=== PATIENT | female | born 1990 | race African-American/Black ===

== ENCOUNTER 2016-12-18 05:56 | Day surgery (SDC) | payer BC, OTHER ==
[2016-12-17 10:46] LABS: HEMATOCRIT 34.5 % (36.0-47.0); HEMOGLOBIN 11.5 g/dL (12.0-15.5); MEAN CORPUSCULAR HEMOGLOBIN 28.1 pg (27.0-33.4); MEAN CORPUSCULAR HGB CONC 33.4 g/dL (32.0-36.0); MEAN CORPUSCULAR VOLUME 84 fl (80-97); RED CELL DISTRIBUTION WIDTH 12.7 % (11.5-14.0); WHITE BLOOD COUNT 7.9 10^3/uL (4.0-10.5)
[~2016-12-18 05:56] MED LIST: CEFAZOLIN 1 GM/D5W RTU 1 GM/50 ML RTUPB IV PRN; LACTATED RINGERS 1000 ML IV PRN; LIDOCAINE 0.5% INJ-PF (5 MG/ML) 50 ML SDV SUBCUT PRN
[2016-12-18] MEDS ORDERED: BUPIVACAINE HCL 0.25 % INJ/PF (2.5 MG/1 ML) 30 ML VIAL ONE (06:35)
[2016-12-18] MEDS ORDERED: BACITRACIN INJ 50,000 UNIT VIAL ONE (06:35)
[2016-12-18] MEDS ORDERED: LIDOCAINE 0.5% INJ-PF (5 MG/ML) 50 ML SDV ONE (06:35)
[2016-12-18] MEDS ORDERED: FENTANYL CITRATE INJ/PF 250 MCG/5 ML AMPULE ONE (06:57)
[2016-12-18] MEDS ORDERED: FENTANYL CITRATE INJ/PF 100 MCG/2 ML AMPUL ONE ×2 (06:57→09:17)
[2016-12-18] MEDS ORDERED: ACETAMINOPHEN 100 ML IV ONE (06:58)
[2016-12-18] MEDS ORDERED: PROPOFOL INJ 200 MG/20 ML VIAL IV ONE ×2 (06:58→07:47)
[2016-12-18] MEDS ORDERED: MIDAZOLAM 2 MG/2 ML INJ ONE (06:58)
[2016-12-18] MEDS ORDERED: PROMETHAZINE HCL INJ 25 MG/1 ML VIAL IV PRN (08:40)
[2016-12-18] MEDS ORDERED: FENTANYL CITRATE INJ/PF 100 MCG/2 ML AMPUL IV PRN ×3 (08:40)
[2016-12-18] MEDS ORDERED: DIPHENHYDRAMINE HCL 50 MG/ML VIAL IV PRN (08:40)
[2016-12-18] MEDS ORDERED: MORPHINE SULFATE 10 MG/ML INJ IV PRN (08:40)
--- NOTE | 2016-12-18 08:55 | PDOC DISCHARGE SUMMARY ---
Discharge Summary (SDC) - Discharge Final Diagnosis: Left axillary abscess, recurrent Date of Surgery: 12/18/16 Discharge Date: 12/18/16 Condition: Good Treatment or Instructions: Discharge home [after recovery per ASU criteria]. Diet , ,as tolerated, when fully awake advance as tolerated. Activities within moderation encouraged. Follow up in my office by appointment in about [1 week]. Call for appointment. Leave wounds [covered], after 48 hours remove and shower, irrigated with 1 teaspoon of peroxide shower and cover with dry gauze repeat daily thereafter. Meds per med rec. Percocet continue antibiotic. Hold of on school/work [until evaluation in office]. May shower [in 48 hrs], [try to keep operated area as dry as possible, until then]. Prescriptions: Cephalexin Monohydrate [Keflex 500 mg Capsule] 500 mg PO TID #15 capsule Oxycodone HCl/Acetaminophen [Percocet 5-325 mg Tablet] 1 tab PO ASDIR PRN #15 tab PRN Reason: Referrals: PATI SETHI DO [Primary Care Provider] - Discharge Diet: As Tolerated Respiratory Treatments at Home: Deep Breathing/Coughing Discharge Activity: Activity As Tolerated Report the Following to Your Physician Immediately: Unusual Bleeding
--- NOTE | 2016-12-18 08:59 | Operative Report ---
Operative Report DATE OF SURGERY: 12/18/16 PREOPERATIVE DIAGNOSIS: Left axillary abscess, recurrent POSTOPERATIVE DIAGNOSIS: Left axillary abscess, recurrent OPERATION: Debridement of left axillary abscess, sharp, surgically, excisional excised subcutaneous tissue. SURGEON: KYLE MA ECHOMETER ENGINEER: JOEL LORENZO ANESTHESIA: LMAC TISSUE REMOVED OR ALTERED: Abscess, left axilla. COMPLICATIONS: None ESTIMATED BLOOD LOSS: 5 mL. INTRAOPERATIVE FINDINGS: Of a forearm skin and subcutaneous area about 5 x 3 cm in the mid to inferior left axilla. Containing inflammatory subcutaneous tissues. Also small amount of pus. Pus sent for culture. Tissue sent for pathology. PROCEDURE: PROCEDURE: The left axilla was prepared with [Betadine] and draped out with sterile linen. After the"universal time-out", in which it was confirmed that the patient [did receive antibiotic], the procedure commenced. The patient was appropriately anesthetized. The wound was probed. The edges marked, local anesthesia infiltrated. The scar of previous abscesses excised down to the abscess cavity circumferentially. Using cautery. The wound was debrided of non viable tissue using cautery and curettes] with removal of loose debris, as well. The wound was irrigated with [Peroxide] . Hemostasis secured with cautery.The wound was now irrigated with saline and [Surgicel] placed within it, dressed with [Kerlix ] and the procedure concluded.
[2016-12-18] MEDS ORDERED: OXYCODONE-ACETAMINOPHEN 5-325 MG TABLET ONE (09:56)
[2016-12-18] MEDS ORDERED: OXYCODONE-ACETAMINOPHEN 5-325 MG TABLET PO PRN (10:30)
[2016-12-18 11:00] VITALS: BP 142/74
[2016-12-18] MEDS ORDERED: ONDANSETRON HCL INJ/PF 4 MG/2 ML SDV ONE (12:27)
[2016-12-18] MEDS ORDERED: GLYCOPYRROLATE INJ 0.4 MG/2 ML VIAL ONE (12:27)
[2016-12-18] MEDS ORDERED: DEXAMETHASONE SOD PHOSPHATE INJ 4 MG/1 ML VIAL ONE (12:27)
[2016-12-18] MEDS ORDERED: LIDOCAINE 2% INJ-PF (20 MG/ML) 10 ML AMPUL ONE (12:27)
== END 2016-12-18 10:45 | disposition home or self-care (01) ==
LOC: OROUT 05:56
PROVIDERS: ATTEND Surgery
PROC: 0JBF0ZZ Excision of Left Upper Arm Subcutaneous Tissue and Fascia, Open Approach (ICD-10-PCS; principal; 2016-12-18 08:00)
DX: L02.412 Cutaneous abscess of left axilla (principal)
CPT/HCPCS: 36415; 87070; 87205; 85027; 81025; 87075; 87077; 87186; 11042; J2250; J3490 ×3; J0690; J1100; J3010; J2405; J2704; J0131; 400

== ENCOUNTER 2016-12-21 16:23 | Emergency (ER) | payer BC ==
[2016-12-21 16:29] VITALS: BP 135/88
--- NOTE | 2016-12-21 16:53 | ER Document Report ---
ED Wound - General Chief Complaint: Wound Recheck Stated Complaint: SURGICAL SITE PAIN Time Seen by Provider: 12/21/16 16:44 Notes: Patient is a 26-year-old female presents emergency department for a wound check. Patient had an incision and drainage of the left axilla on Saturday by Dr. Rajput. States she took the packing out yesterday and it addressing that she was unable to remove today. She states that she is concerned because of stuck. Otherwise she denies any tenderness, fever, chills, worsening pain. TRAVEL OUTSIDE OF THE [place] IN LAST 30 DAYS: No - Related Data Allergies/Adverse Reactions: No Known Allergies Allergy (Verified 12/21/16 16:29) Past Medical History - Social History Smoking Status: Never Smoker Family History: Reviewed & Not Pertinent - Past Medical History Cardiac Medical History: Denies: Hx Coronary Artery Disease, Hx Heart Attack, Hx Hypertension Pulmonary Medical History: Denies: Hx Asthma, Hx Bronchitis, Hx COPD, Hx Pneumonia Neurological Medical History: Denies: Hx Cerebrovascular Accident, Hx Seizures Renal/ Medical History: Denies: Hx Peritoneal Dialysis GI Medical History: Denies: Hx Hepatitis, Hx Hiatal Hernia, Hx Ulcer Musculoskeltal Medical History: Denies Hx Arthritis Infectious Medical History: Denies: Hx Hepatitis Past Surgical History: Denies: Hx Hysterectomy, Hx Mastectomy, Hx Open Heart Surgery, Hx Pacemaker - Immunizations Hx Diphtheria, Pertussis, Tetanus Vaccination: Yes Review of Systems - Review of Systems Constitutional: No symptoms reported Skin: See HPI -: Yes All other systems reviewed and negative Physical Exam - Vital signs Vitals: Temp Pulse Resp BP Pulse Ox 98.4 F 83 18 135/88 H 100 12/21/16 16:25 12/21/16 16:25 12/21/16 16:25 12/21/16 16:25 12/21/16 16:25 - General General appearance: Appears well, Alert In distress: None - Extremities General upper extremity: Normal inspection, Nontender, Normal color, Normal ROM , Normal strength, Normal temperature. No: Edema - Skin Skin Temperature: Warm Skin Moisture: Dry Skin Color: Normal Skin Turgor: Elastic Skin irregularity: other - Site under the left axilla measuring approximately 3 cm in diameter post incision and drainage without surrounding induration, erythema or cellulitis. Nontender to exam. Gauze removed at the bedside without any evidence of underlying retained purulent material. Course - Re-evaluation Re-evalutation: 12/21/16 17:06 Patient is a 26-year-old female is hemodynamically stable, no acute distress and afebrile. Wound of the left axilla is healing well without any evidence of retained purulent material, induration or surrounding cellulitis. Patient's vital signs are stable. Discussed wound care at home and otherwise can follow- up with Dr. Rajput. Patient agrees with plan - Vital Signs Vital signs: Temp Pulse Resp BP Pulse Ox 98.4 F 83 18 135/88 H 100 12/21/16 16:25 12/21/16 16:25 12/21/16 16:25 12/21/16 16:25 12/21/16 16:25 Discharge - Discharge Clinical Impression: Wound check, abscess Condition: Good Disposition: HOME, SELF-CARE Instructions: Post Incision and Drainage Referrals: KYLE RAJPUT MD [ACTIVE STAFF] - Follow up in 1 week
== END 2016-12-21 17:05 | disposition home or self-care (01) ==
LOC: ER 16:23
DX: Z48.01 Encounter for change or removal of surgical wound dressing (principal); L02.412 Cutaneous abscess of left axilla
CPT/HCPCS: 99282

== ENCOUNTER 2017-06-11 07:55 | Day surgery (SDC) | payer BC ==
[~2017-06-11 07:55] MED LIST changes: +BACITRACIN INJ 50,000 UNIT VIAL ONE; +BUPIVACAINE HCL 0.25 % INJ/PF (2.5 MG/1 ML) 30 ML VIAL ONE; +DEXTROSE 5%-1/2 NORMAL SALINE 1,000 ML IV PRN; +LIDOCAINE 0.5% INJ-PF (5 MG/ML) 50 ML SDV ONE
[2017-06-11 08:43] LABS: HEMATOCRIT 40.1 % (36.0-47.0); HEMOGLOBIN 13.1 g/dL (12.0-15.5); MEAN CORPUSCULAR HEMOGLOBIN 27.4 pg (27.0-33.4); MEAN CORPUSCULAR HGB CONC 32.7 g/dL (32.0-36.0); MEAN CORPUSCULAR VOLUME 84 fl (80-97); PLATELET COUNT 260 10^3/uL (150-450); RED BLOOD COUNT 4.78 10^6/uL (3.72-5.28); RED CELL DISTRIBUTION WIDTH 13.5 % (11.5-14.0); WHITE BLOOD COUNT 6.1 10^3/uL (4.0-10.5)
[2017-06-11 08:58] LABS: ANION GAP 8 (5-19); BLOOD UREA NITROGEN 14 mg/dL (7-20); CALCIUM 9.3 mg/dL (8.4-10.2); CARBON DIOXIDE 23 mmol/L (22-30); CHLORIDE 110 mmol/L (98-107); GLUCOSE 92 mg/dL (75-110); POTASSIUM 4.7 mmol/L (3.6-5.0); SODIUM 141.2 mmol/L (137-145)
[2017-06-11] MEDS ORDERED: ONDANSETRON HCL INJ/PF 4 MG/2 ML SDV ONE (10:24)
[2017-06-11] MEDS ORDERED: MIDAZOLAM 2 MG/2 ML INJ ONE (10:24)
[2017-06-11] MEDS ORDERED: FENTANYL CITRATE INJ/PF 100 MCG/2 ML AMPUL ONE (10:24)
[2017-06-11] MEDS ORDERED: DEXAMETHASONE SOD PHOSPHATE INJ 4 MG/1 ML VIAL ONE (10:24)
[2017-06-11] MEDS ORDERED: PROPOFOL INJ 200 MG/20 ML VIAL IV ONE (10:25)
[2017-06-11] MEDS ORDERED: PROMETHAZINE HCL INJ 25 MG/1 ML VIAL IV PRN ×2 (11:18)
[2017-06-11] MEDS ORDERED: OXYCODONE-ACETAMINOPHEN 5-325 MG TABLET PO PRN ×2 (11:18)
[2017-06-11] MEDS ORDERED: FENTANYL CITRATE INJ/PF 100 MCG/2 ML AMPUL IV PRN ×3 (11:18)
[2017-06-11] MEDS ORDERED: MEPERIDINE HCL/PF INJ 25 MG/1 ML DISP.SYRIN IV PRN (11:18)
[2017-06-11] MEDS ORDERED: DIPHENHYDRAMINE HCL 50 MG/ML VIAL IV PRN (11:18)
--- NOTE | 2017-06-11 12:03 | Discharge Summary ---
Discharge Summary (SDC) - Discharge Final Diagnosis: Hidradenitis of the right axilla. Date of Surgery: 06/11/17 Discharge Date: 06/11/17 Condition: Good Forms: ASU Anesthesia D/C Instruction, Discharge POC-Surgical Service Treatment or Instructions: Discharge home [after recovery per ASU criteria]. Diet ,,as tolerated, when fully awake advance as tolerated. Activities within moderation encouraged. Follow up in my office by appointment in about [1 week]. Call for appointment. Leave wounds [covered], [keep clean and dry, until office visit in 1 week]. Meds per med rec. Percocet prescription. Keflex prescription. Hold of on school/work [until evaluation in office]. May shower [in 48 hrs], [try to keep operated area as dry as possible]. Prescriptions: Cephalexin Monohydrate [Keflex 500 mg Capsule] 500 mg PO QID #20 capsule Referrals: KYLE BECKHAM MD [ACTIVE STAFF] - Discharge Diet: As Tolerated Respiratory Treatments at Home: Deep Breathing/Coughing Discharge Activity: Activity As Tolerated Report the Following to Your Physician Immediately: Shortness of Breath, Unusual Bleeding
--- NOTE | 2017-06-11 12:07 | Operative Report ---
Operative Report DATE OF SURGERY: 06/11/17 PREOPERATIVE DIAGNOSIS: Subacute hidradenitis of the right axilla. POSTOPERATIVE DIAGNOSIS: Subacute hidradenitis of the right axilla. OPERATION: Excision of active hidradenitis in the right axilla. SURGEON: KYLE MA LOTTERIES AGENT: None ANESTHESIA: GA TISSUE REMOVED OR ALTERED: Involve skin and subcutaneous tissue. COMPLICATIONS: None. ESTIMATED BLOOD LOSS: 20 mL. INTRAOPERATIVE FINDINGS: Of hairbearing area in the right axilla relatively free of disease except for the lateral 3 cm. Limited excision was done in this case because there is a risk of wound breakdown. This was discussed with the patient preoperatively. It is based on the recent abscess and continuing smoldering nature. She understands that in time for the ear excision may be needed. PROCEDURE: The patient was taken to the operating room and positioned supine. She was anesthetized and intubated. The right axilla and right upper extremity were prepared with chlorhexidine and draped out with sterile linen. The arm was positioned at approximately 90 to the patient. Free draped. A roll placed beneath the shoulder to keep the axilla off the bed. After the universal timeout, in which it was verified that the patient received IV antibiotic, consideration given to adding adding Flagyl, for anaerobic coverage, and that the correct site was being operated on, the procedure commenced. The involved right axillary skin was noted and marked. This was somewhat elliptical so as to include all of the subacute involved skin. Local anesthesia was infiltrated in the skin and subcutaneous tissues around and beneath the involved area. The incision now commenced at the inferior aspect so as to incise the skin border in a V-shaped. This was now grasped with a Radha clamp. The Radha clamp was placed on traction and dissection proceeded piecemeal on either side and beneath the skin flaps. In this way the diseased tissue was excised with a minimum of blood loss. It was submitted for pathology. The specimen was handed off the field and the gloves were changed, the wound irrigated. This is in an effort to avoid contaminating the fresh wound. Hemostasis was now secured using electrocautery. Once this was done skin approximation was done. It was noted that there was need for a rotation flap in order to secure tension-free closure. Rakes were now used to elevate skin and a flap was now raised medially and then laterally, staying in the deep subcutaneous tissues. This continued for a distance of 3 cm on either side. From time to time the closure was tested. Hemostasis was again secured. The wound was now closed. Closure was now done using interrupted 3-0 PDS sutures used to approximate the subcutaneous tissues beneath and across incision. The rotation done to get tissue into the defect. This was done and approximated in a cosmetic fashion. The skin was now closed using a continuous subcutaneous suture of 4-0 Monocryl which was reinforced with Steri-Strips over benzoin. Acticoat dressing was now applied and held in place with Steri- Strips. Acticoat was now placed on the dressing and held in place with Steri- Strips. Folded fluffy dressings and ABDs were now placed over the incision and tied in place using the previously placed 2-0 Prolene sutures and the procedure concluded. Consideration given to giving Toradol for optimal pain relief.
[2017-06-11] MEDS ORDERED: SUCCINYLCHOLINE CHLORIDE INJ 200 MG/10 ML VIAL ONE (13:46)
[2017-06-11 13:55] VITALS: BP 132/71
== END 2017-06-11 14:10 | disposition home or self-care (01) ==
LOC: OROUT 07:55
PROVIDERS: ATTEND Surgery
PROC: 0JBD0ZZ Excision of Right Upper Arm Subcutaneous Tissue and Fascia, Open Approach (ICD-10-PCS; principal; 2017-06-11 10:00)
DX: L73.2 Hidradenitis suppurativa (principal)
CPT/HCPCS: 36415; 400; 80048; 81025; 85027; 88305; J0330; J0690; J1100; J2250; J2405; J2704; J3010; J3490